=== PATIENT | female | born 1995 | race African-American/Black ===

== ENCOUNTER 2017-01-12 11:34 | Emergency (ER) | payer SELFPAY ==
[~2017-01-12] VITALS: Ht 175.3 cm; Wt 110.0 kg
[~2017-01-12 11:34] MED LIST: CYCL1TAB29 PO; DICL50TA3 PO
[2017-01-12 11:38] VITALS: BP 137/83; PULSE 64; RESP 12; TEMP 97.8; O2SAT 100
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
[2017-01-12] MEDS ORDERED: DICL75TA PO (12:57)
--- NOTE | 2017-01-13 13:44 | EKG ---
Date Performed: 01/12/2017 Time Performed: 12:01:28 PTAGE: 21 years EKG: Sinus rhythm NORMAL ECG NO PREVIOUS TRACING DOCTOR: Prasanna Salmeron Interpretating Date/Time 01/13/2017 13:39:28
== END 2017-01-12 13:12 | disposition home or self-care (01) ==
LOC: NEPE 11:34
DX: M94.0 Chondrocostal junction syndrome [Tietze] (principal); N64.4 Mastodynia
CPT/HCPCS: 71020; 84703; 93005; 99284